=== PATIENT | female | born 1970 | race American Indian/Alaskan Native ===

== ENCOUNTER 2016-10-03 08:53 | Observation (INO) | payer BC ==
[2016-09-28 08:45] LABS: Basophils % (Auto) 0.8 % (0.0-1.8); Eosinophils % (Auto) 1.6 % (0.0-4.3); Hematocrit 43.8 % (30.3-42.9); Hemoglobin 14.3 gm/dl (10.1-14.3); Mean Corpuscular HGB Conc 33 % (30-34); Mean Corpuscular Hemoglobin 29 pg (28-32); Mean Corpuscular Volume 89 fl (79-97); Platelet Count 281 K/mm3 (140-440); Red Blood Count 4.91 M/mm3 (3.65-5.03); Red Cell Distribution Width 12.8 % (13.2-15.2); White Blood Count 5.3 K/mm3 (4.5-11.0)
[2016-09-28 09:03] LABS: Anion Gap 16 mmol/L; BUN/Creatinine Ratio 11.42; Blood Urea Nitrogen 8 mg/dL (7-17); Calcium 9.1 mg/dL (8.4-10.2); Carbon Dioxide 26 mmol/L (22-30); Chloride 103.7 mmol/L (98-107); Glucose 91 mg/dL (65-100); Sodium 142 mmol/L (137-145)
--- NOTE | 2016-09-28 09:03 | Anesthesia Consultation ---
Anesthesia Consult and Med Hx Date of service: 09/28/16 - Airway Anesthetic Teeth Evaluation: Good, Crowns ROM Head & Neck: Adequate Mental/Hyoid Distance: Adequate Mallampati Class: Class II Intubation Access Assessment: Probably Good - Pulmonary Exam CTA: Yes - Cardiac Exam Cardiac Exam: RRR - Pre-Operative Health Status ASA Pre-Surgery Classification: ASA2 Proposed Anesthetic Plan: General Nerve Block: PEC - Pulmonary Hx Smoking: No Hx Sleep Apnea: No - Central Nervous System Hx Psychiatric Problems: No - Other Systems Hx Cancer: Yes (LEFT BREAST, DX: 08/2016) - Additional Comments Anesthesia Medical History Comments: NAC
[~2016-10-03 08:53] MED LIST: NEURONTIN PO NR; PEPCID PO NR; SUBLIMAZE IV NR
[2016-10-03] MEDS ORDERED: ceFAZolin 2 GM in NACL 0.9% 100 ML IV ONE (10:38)
[2016-10-03] MEDS: LACTATED RINGERS 1,000 ML IV SCH ×2 (11:09→23:59)
[2016-10-03] MEDS ORDERED: DILAUDID ONE ×2 (11:15→19:34)
[2016-10-03] MEDS ORDERED: DIPRIVAN 10 MG/ML IV ONE (11:15)
[2016-10-03] MEDS: VERSED IV NR ×2 (11:21→13:37)
[2016-10-03] MEDS ORDERED: GARAMYCIN ONE (11:45)
[2016-10-03] MEDS ORDERED: NACL P/F VIAL (10 ML) ONE (11:45)
[2016-10-03] MEDS ORDERED: ANCEF/STERILE WATER 2 GM/20 ML 2 GM/20 ML SYRINGE IV SCH (12:00)
[2016-10-03] MEDS ORDERED: DECADRON IV NR (12:55)
[2016-10-03] MEDS ORDERED: MARCAINE 0.5% INFILTRATI NR ×2 (12:55)
[2016-10-03] MEDS ORDERED: XYLOCAINE 1% 20 mL ONE (13:17)
[2016-10-03] MEDS ORDERED: ZOFRAN ONE ×2 (14:02→14:45)
[2016-10-03] MEDS ORDERED: NEO SYNEPHRINE/NS Syringe(OR USE) IV ONE (14:02)
[2016-10-03] MEDS ORDERED: XYLOCAINE MPF 2% ONE ×3 (14:02→19:09)
--- NOTE | 2016-10-03 14:15 | Operative Report ---
Operative Report Operative Report: Date of Surgery: October 03, 2016 Preoperative Diagnosis: Left breast cancer of the upper outer quadrant with SA involvement Postoperative: Same Procedure: Left total mastectomy with SLNB followed by axillary lymph node dissection and right total mastectomy Surgeon: Loren Ramos MD Ink Grinder: Haris Lancaster Findings: Known left breast cancer of the upper outer quadrant with involvement of the SA; SLNB with 2/4 positive SLNs and left ALND performed Complications: None Disposition: Followed by bilateral tissue civil manager placement Dr. Campbell Indications for operative procedure: This is a 46 year old lady with newly diagnosed stage II left breast cancer. Recommendations were for left total mastectomy versus central mastectomy with SLN staging and she wished to proceed with bilateral total mastectomies with immediate tissue civil manager placement. Role of neoadjuvant chemotherapy discussed as well and she wished to proceed with surgery first. Procedure in Detail: Anesthesia performed bilateral pectoral muscle blocks. The patient was taken to the operating room and was laid supine with general anesthesia administered. Left nipple injected with radioisotope. Bilateral breasts and left axilla were prepped and draped in the normal sterile operative fashion. A marking pen was used to shay the area of mastectomy incisions bilaterally. First proceeded with right breast mastectomy. A skin incision was made with a 10 blade knife and dissection taken down to the subcutaneous tissues. First began with raising of the superior flap to the level of the clavicle with dissection taken down to the pectoralis muscle, raising of the lateral flap to the level of the latissimus muscle with dissection taken down to the pectoralis muscle, raising of the medial flap to the level of the sternum with dissection taken down to the pectoralis muscle and raising of the inferior flap to the level of inframammary fold with dissection taken down to the pectoralis muscle. Mastectomy was then removed from the pectoralis muscle with the aid of Bovie cautery. Hemostasis was obtained. Chest cavity was temporarily closed with luis. Attention was then taken towards the left breast. A skin incision was made with a 10 blade knife with dissection taken down to the subcutaneous tissues. First began with the raising of the superior flap to the level of the clavicles taken down posteriorly to the pectoralis muscle, followed by raising of the medial flap to the level of the sternum taken down posterior to the level of the pectoralis muscle, the raising of the lateral flap to the level of the latissimus taken down posteriorly to the pectoralis muscle. Gamma probe was inserted into the axilla with 4 sentinel lymph nodes identified and dissected free. Frozen section with 2 positive sentinel lymph nodes. It was then decided patient would need an axillary lymph node dissection. Proceeded with completion of the mastectomy with raising of the inferior flap to the level of inframammary fold taken down posteriorly to the pectoralis muscle with the mastectomy removed from the pectoralis muscle with aid of Bovie cautery. Attention was then taken towards axillary lymph node dissection. Latissimus muscle was identified and followed superiorly. Axillary vein was identified as well as the thoracodorsal bundle and long thoracic nerve. Both nerves were unharmed. Lymph nodes were then removed from the above boundries. Hemostasis was noted. Chest cavity was irrigated and suctioned. Dr. Campbell then proceeded with performance of bilateral tissue civil manager placement.
[2016-10-03] MEDS ORDERED: DECADRON ONE (14:18)
[2016-10-03] MEDS ORDERED: ROBINUL ONE (14:45)
[2016-10-03] MEDS ORDERED: ZEMURON IV ONE (14:45)
[2016-10-03] MEDS ORDERED: LACTATED RINGERS 1,000 ML ONE ×2 (15:05→18:27)
[2016-10-03] MEDS ORDERED: WATER FOR IRRIG STERILE IR ONE (15:37)
[2016-10-03] MEDS ORDERED: ePHEDrine SULFATE ONE (15:56)
[2016-10-03] MEDS ORDERED: NACL P/F VIAL (10 ML) 10 ML ONE (15:56)
[2016-10-03] MEDS ORDERED: NACL 0.9% 1000 ML 1,000 ML ONE (16:10)
[2016-10-03] MEDS ORDERED: ANCEF IV ONE (17:04)
[2016-10-03] MEDS ORDERED: NACL 0.9% IR ONE (17:04)
[2016-10-03] MEDS ORDERED: BACITRACIN IR ONE (17:05)
[2016-10-03] MEDS ORDERED: BENADRYL PO PRN (18:07)
[2016-10-03] MEDS ORDERED: ZOFRAN IV PRN (18:07)
[2016-10-03] MEDS ORDERED: TYLENOL PO PRN (18:07)
[2016-10-03] MEDS ORDERED: SODIUM CHLORIDE FLUSH SYRINGE 10 ML IV PRN (18:07)
[2016-10-03] MEDS ORDERED: PERCOCET 5/325 PO PRN (18:07)
[2016-10-03] MEDS ORDERED: REGLAN PO PRN (18:07)
--- NOTE | 2016-10-03 18:07 | Short Stay Summary ---
Short Stay Documentation Date of service: 10/03/16 - History H&P: obtained from office - Allergies and Medications Current Medications: Allergies crayfish Allergy (Verified 09/26/16 16:35) Itching, Difficulty breathing, nausea Home Medications Medication Instructions Recorded Confirmed Last Taken Type No Known Home Medications [No 09/26/16 09/26/16 Unknown History Reported Home Medications] Active Medications Celecoxib (Celebrex) 200 mg PO PREOP NR Stop: 10/03/16 23:59 Last Admin: 10/03/16 11:11 Dose: 200 mg Famotidine (Pepcid) 20 mg PO PREOP NR Stop: 10/03/16 23:59 Last Admin: 10/03/16 11:10 Dose: 20 mg Fentanyl (Sublimaze) 100 mcg IV ONCE NR Stop: 10/03/16 23:59 Last Admin: 10/03/16 13:34 Dose: 100 mcg Gabapentin (Neurontin) 600 mg PO PREOP NR Stop: 10/03/16 23:59 Last Admin: 10/03/16 11:11 Dose: 600 mg Lactated Ringer's (Lactated Ringers) 1,000 mls @ 100 mls/hr IV DIRECT KEELY Last Admin: 10/03/16 11:09 Dose: 100 mls/hr Cefazolin Sodium (Ancef/Sterile Water 2 Gm/20 Ml) 2 gm in 20 mls @ 80 mls/hr IV PREOP KEELY Stop: 10/03/16 23:59 Midazolam HCl (Versed) 2 mg IV PREOP NR Stop: 10/03/16 23:59 Last Admin: 10/03/16 13:37 Dose: 1 mg - Brief post op/procedure progress note Date of procedure: 10/03/16 Pre-op diagnosis: Left breast cancer Post-op diagnosis: same Procedure: Left total mastectomy with SLNB followed by left ALND and right total mastectomy Anesthesia: GETA Findings: Bilateral total mastectomy with left breast known cancer of the SA; 2/4 positive SLNs and proceeded with left ALND Surgeon: JOCELYN MILLER Estimated blood loss: 50-100ml Pathology: list (left MRM and right total mastectomy) Specimen disposition: to lab Condition: stable - Disposition Condition at discharge: Good Disposition: DC/TX SHORT-TERM GEN HOSP INPT Short Stay Discharge Plan Activity: other (no heavy lifting) Diet: regular Wound: other (may shower in 48 hours; no baths, pools or lakes) Follow up with: JOSE MARIA JOHNSON MD [Primary Care Provider] - 7 Days JOCELYN MILLER MD [Staff Physician] - 7 Days
[2016-10-03] MEDS ORDERED: ANCEF ONE (18:08)
[2016-10-03] MEDS ORDERED: SUBLIMAZE IV PRN (18:09)
[2016-10-03] MEDS ORDERED: LACTATED RINGERS 1,000 ML IV SCH (19:00)
[2016-10-03] MEDS ORDERED: TORADOL ONE (19:22)
[2016-10-03] MEDS: DILAUDID IV PRN ×2 (19:42→20:05)
--- NOTE | 2016-10-03 22:01 | Operative Report ---
PREOPERATIVE DIAGNOSIS: Left breast cancer. POSTOPERATIVE DIAGNOSIS: Left breast cancer. PROCEDURE: 1. Bilateral immediate breast reconstruction with Boring Artoura 500 mL tissue expanders. 2. Placement of acellular dermal matrix, bilateral breasts 8 x 16 cm x 2. SURGEON: Allen Campbell MD FLAT KNITTER: None. ANESTHESIA: General endotracheal tube anesthesia. DRAINS: MARQUITA x 5. SPECIMENS: None. COMPLICATIONS: None. ESTIMATED BLOOD LOSS: 25 mL. IMPLANTED DEVICES: Artoura tissue stacker tender 500 mL x 2, AdMatrix acellular dermal matrix 8 x 16 cm thick x 2. INDICATIONS: The patient is a 46-year-old woman with left breast cancer. She presents for immediate breast reconstruction. Nature of the surgery, technical aspects, typical recovery period, and potential risks involved were discussed fully including but not limited to postop bleeding, infection, pronounced scar, or deformity, hematoma or seroma formation, area of paresthesias or numbness or postoperative pain, delayed healing or implant exposure, possible need for removal of implant, asymmetry (expected), capsular contracture, failed to achieve artistic goals, need for revision, or future surgery. She understands the staged nature of breast reconstruction surgery and the anticipated need for additional procedures. DESCRIPTION OF PROCEDURE: The patient was already anesthetized. Dr. Ramos had completed bilateral mastectomy with left axillary node dissection. Positive nodes were identified. However, the skin flaps appeared fairly healthy with good skin viability and no undue tension on closure, so I elected to proceed with reconstruction of the left breast. Both breasts were treated in a similar manner in terms of reconstructive procedures, namely the placement of a tissue stacker tender below the pectoral muscle on each side. The pectoral muscle was divided inferiorly and inferomedially with electrocautery under direct vision and a subpectoral pocket was created. A hydrated and antibiotic washed 8 x 16 cm thick sheet of acellular dermal matrix (AdMatrix) was placed into the lower pole of each breast, it was trimmed to the appropriate size and sewn to the chest wall with interrupted 0 PDS and interrupted 0 Vicryl along the junction of the pectoralis major and ADM superiorly. The pocket was irrigated with copious amounts of triple antibiotic solution comprised of Ancef, gentamicin, and bacitracin solution and a liter of saline. A deep 10 flat MARQUITA drain was placed into the deep pocket and a more superficial 7 mm flat MARQUITA drain was placed superficial to the ADM on each side. They exited through separate inferior lateral stab incisions and were sewn in place with 2-0 silk. The tissue stacker tender was emptied when placed and sewn to the chest wall utilizing its tabs. Closure was then facilitated after hemostasis meticulously achieved and the pocket irrigated with a running 2-0 Vicryl suture at the level of subcutaneous tissue plane, 3-0 Monocryl at the level of the deep dermis in an interrupted manner and a running subcuticular 4-0 Monocryl stitch, and then skin glue along the skin surface. The left breast was treated in identical manner with the exception of placement of an axillary drain, which was a 7 mm flat MARQUITA drain also sewn in place with a 2-0 silk laterally on the chest wall, lateral tacking sutures comprised of 2-0 Vicryl utilized to compartmentalized the axillary pocket from the breast pocket. The tissue stacker tender was completely covered by either muscle and/or ADM. The skin flaps appeared healthy and viable. At the termination of the case, there was no undue tension. I elected to place 240 mL into the right breast tissue stacker tender utilizing a closed sterile technique. A 150 mL was placed into the left tissue stacker tender percutaneously through the skin on each side. She tolerated the procedure well, was extubated and transferred to the recovery area in stable condition. Fluff dressing and a tube top surgical bra was applied. JOB# [id number] /DANAE
--- NOTE | 2016-10-03 22:02 | Post Anesthesia Evaluation ---
- Post Anesthesia Evaluation Patient Participated: Yes Airway Patent: Yes Stable Respiratory Function: Yes Nausea/Vomiting: No Temp > 96.8F: Yes Pain Manageable: Yes Adequeate Hydration: Yes Anesthesia Complications: No
[2016-10-03] MEDS: KEFLEX PO SCH (22:05)
[2016-10-04] MEDS: MORPHINE IV PRN ×2 (05:38)
--- NOTE | 2016-10-04 07:27 | Admit Criteria Form ---
Admission Criteria Documentation: AMBULATORY SURGERY EXCEPTION CRITERIA Ambulatory Surgery Exception Criteria ( Place 'X' for any and all applicable criteria): Surgery or procedure performed on ambulatory basis may require inpatient stay for[A] ANY ONE of the following(1)(2)(3)(4)(5)(6)(7)(8)(9): [X] I. A preoperative situation, condition, or finding that warrants inpatient stay as indicated by ANY ONE of the following: [] a) Inpatient care needed because of severity of a disease or condition rather than the surgery (eg, severe cardiac or respiratory disease, severe infection) (15) (16 ) (17) (18) [] b) Emergent procedure (eg, angioplasty for acute ischemia)(19) [X] c) Complex surgical approach or situation as indicated by ANY ONE of the following(3): [] i) Open approach needed instead of usual endoscopic, transcatheter, or other less invasive procedure [] ii) Difficult approach because of previous operation [] iii) Airway monitoring required after open neck procedures(20)(21) [X] iv) Large mass requiring unusually extensive dissection [] v) Additional complicating feature requiring inpatient care (eg, drain management)(22(23): [] d) Major surgery in a pt with high anesthetic risk as indicated by ANY ONE of the following (2)(3)(5)(7)(8): [] i) ASA risk class III or higher (severe systemic disease impairing function) [D] [] ii) Advanced age (eg, older than 85 years)(14)(24) [] iii) Symptomatic heart failure(25) [] iv) Symptomatic asthma or COPD(8)(21) [] v) Morbid obesity with hemodynamic or respiratory problems(20)( 21)(26)(27) [] vi) Obstructive sleep apnea(20)(21) [] vii) Former premature infants who are younger than 60 weeks [] viii) High risk for severe postoperative abnormalities (eg, severe postoperative hypocalcemia after parathyroidectomy for severe hyperparathyroidism)(27)( 28) [] ix) Unstable angina(25) [] e) Drug-related risk requiring inpatient stay as indicated by ANY ONE of the following(5)(10)(14)(32)(33) [] i) Procedure requires discontinuing drugs or other therapy (eg , antiarrhythmic medication, antiseizure medication), which necessitates inpatient observation or treatment.(18)(31) [] ii) Major surgery and high risk drug use as indicated by ANY ONE of the following: [] 1) Active abuse of cocaine or similar drug [] 2) Monoamine oxidase inhibitor use [] 3) Other drug identified as posing risk [] f) Inadequate outpatient care situation as indicated by ANY ONE of the following(5)(10)(14)(32)(33) [] i) Patient lives remote from medical facility and procedure has urgent complication potential, and temporary nearby residence cannot be arranged [] ii) Patient will have postprocedure incapacitation and inadequate assistance at home, or alternative level of care cannot be arranged. [] iii) Patient will have long general anesthesia or procedure side effect resolution time, and competent person to stay with patient on first postoperative night at home or alternative level of care cannot be arranged. []iv) Other inadequate outpatient situation that cannot be handled by other means [] II. A perioperative event, condition, or finding that warrants inpatient stay as indicated by ANY ONE of the following (1)(2)(3): [] a) Inadequate physiologic recovery: cardiovascular, respiratory, or hemodynamic status not normal or near preoperative baseline(18) [] b) Hemodynamic instability [] c) Patient not alert with near normal or baseline mental status [] d) Temperature not normal or as expected and not appropriate for outpatient treatment of condition [] e) Ambulatory or appropriate activity level status not yet achieved post procedure [E](34)(35)(36) [] f) Operative site not appropriate (eg, unexpected or excessive drainage or bleeding) [] g) Postoperative effects not resolved or adequately managed (eg, significant pain or vomiting not appropriate for outpatient or next level of care)(10)(12) [] h) Complicating features requiring inpatient care as indicated by ANY ONE of the following(37): [] i) Severe complications of procedure (eg, bowel injury, airway compromise, vascular injury,severe hemorrhage) [] ii) Extensive (eg, dissection far beyond usual scope of procedure ) or prolonged (eg, 120 minutes beyond usual) surgery needed requiring inpatient postoperative care [] iii) Conversion to an open or complex procedure that requires inpatient care (eg, open vs laparoscopic cholecystectomy, abdominal vs vaginal hysterectomy)(38) [] iv) Comorbid condition or test result identified during or post procedure that requires inpatient care (7) [] v) Malignant hyperthermia(30) [] vi) Other complicating feature requiring inpatient care(22)(23) Inpatient stay may be needed until ALL of the following are present (1)(2)(3)(4) (5)(6)(10)(14)(33)(40): []a) Physiologic recovery: cardiovascular, respiratory, and hemodynamic status normal or near preoperative baseline []b) Hemodynamic stability []c) Patient alert, with near normal or baseline mental status []d) Temperature appropriate: patient afebrile or temperature appropriate for outpt treatment of condition []e) Activity level appropriate: ambulatory or appropriate activity level post procedure []f) Operative site appropriate as indicated by ALL of the following: []i) Site dry or with expected drainage []ii) Any blood noted is as expected for procedure. []g) Postoperative effects resolved or managed as indicated by ALL of the following: []i) Pain management appropriate for outpatient (or next level of) care(10) []ii) Minimal nausea and vomiting: if present, successfully treated with oral medication(12) []iii) Headache, dizziness, or drowsiness (if present) are mild. []h) Voiding status acceptable as indicated by ANY ONE of the following: []i) Voiding spontaneously []ii) No voiding but instructions given for follow-up in 6 to 8 hours []iii) Urinary catheter in place, and instructions given for follow-up []i) Complicating features requiring inpatient care manageable at a lower level of care(37) []j) Comorbid conditions manageable at a lower level of care(37) The original [employer] content created by [employer] has been revised. The portions of the content which have been revised are identified through the use of italic text or in bold, and [facility] has neither reviewed nor approved the modified material. All other unmodified content is copyright [employer]. Please see references footnoted in the original [employer] edition 2016 Admission Criteria Met: Yes
[2016-10-04] MEDS: PERCOCET 5/325 PO PRN ×3 (09:35→18:38)
[2016-10-04] MEDS: KEFLEX PO SCH (10:00)
[2016-10-04 17:49] VITALS: BP 94/78
--- NOTE | 2016-10-04 21:42 | Progress Note ---
Assessment and Plan This is a 46 year old lady POD#1 L MRM and right total mastectomy with bilateral tissue soil technician placement. 1. No acute events overnight, pain in better control. 2. OOB to hallway. 3. Bilateral chest incisions healing well with skin well perfused. 4. JONH drain education. 5. D/C planning. Subjective Date of service: 10/04/16 Principal diagnosis: Left breast cancer of the SA Interval history: This is a 46 year old lady with stage II left breast cancer status post left total mastectomy with SLNB followed by ALND and right total mastectomy on October 03, 2016. No acute events overnight. Objective - Constitutional Vitals: Vital Signs - 12hr 10/04/16 10/04/16 11:44 16:26 Temperature 98.2 F 98.0 F Pulse Rate [ 76 Left Radial] Pulse Rate [ 68 Right] Respiratory 16 20 Rate Blood Pressure 94/78 [Left Arm] Blood Pressure 90/56 [Right Arm] General appearance: Present: no acute distress - EENT Eyes: PERRL, EOM intact ENT: hearing intact, clear oral mucosa, dentition normal Ears: bilateral: normal - Neck Neck: supple, normal ROM - Respiratory Respiratory effort: normal Respiratory: bilateral: CTA - Breasts Breasts: other (bilateral chest incisions with tissue expanders in place; incisions clean, dry and intact; no fluid collections; skin well perfused; jonh drains to bulb suction) - Cardiovascular Rhythm: regular Extremities: no ischemia, pulses intact, pulses symmetrical - Gastrointestinal General gastrointestinal: Present: soft, non-tender, non-distended Rectal Exam: deferred - Genitourinary Female genitourinary: deferred - Integumentary Integumentary: clear, warm, dry - Musculoskeletal Musculoskeletal: strength equal bilaterally - Neurologic Neurologic: CNII-XII intact, moves all extremities - Psychiatric Psychiatric: appropriate mood/affect, intact judgment & insight, memory intact, cooperative - Labs CBC & Chem 7: 09/28/16 08:31 09/28/16 08:31
== END 2016-10-04 19:25 | disposition home or self-care (01) ==
LOC: OR 08:53 → INTOOBSV 18:07 → OB 18:07
PROVIDERS: ADMIT Surgery; ATTEND Surgery
DX: C50.412 Malignant neoplasm of upper-outer quadrant of left female breast (principal)
CPT/HCPCS: 19301; 36415; 38525; 64450; 78800; 80048; 84703; 85025; 88307; 88331; 88333; 88342; 96374; 96375; 96376; A9541; C1789; G0378; J0690; J1100; J1170; J1580; J1885; J2250; J2270; J2370; J2405; J2704; J3010; J7030; J7120; Q4116

== ENCOUNTER 2019-06-23 09:31 | Outpatient (CLI) | payer BC, OTHER | END 2019-06-23 09:32 | disposition home or self-care (01) | LOC: LABHHL 09:31 | PROVIDERS: ATTEND Surgery | DX: R22.2 Localized swelling, mass and lump, trunk (principal); Z85.3 Personal history of malignant neoplasm of breast | CPT/HCPCS: 88305; 88307; 88342 ==